=== PATIENT | female | born 1965 | race Caucasian/White ===

== ENCOUNTER 2016-04-01 19:24 | Emergency (ER) | payer OTHER ==
[~2016-04-01] VITALS: Ht 167.6 cm; Wt 90.9 kg
[~2016-04-01 19:24] MED LIST: CELEXA 20MG20 MG/TAB; CELEXA 20MG20 MG/TAB PO; CIPRO 500MG TA500 MG PO; CYANOJECT1000 MCG/M; DILAUDID 2MG TAB2 MG PO; EXCEDRIN TENSIO1 TAB PO; FLAGYL500 MG PO; FLEXERIL 1010 MG/TAB PO; GAS RELIEF 8080 MG PO; HALCION0.25 MG PO; INFED50 MG/ML IJ; LEVAQUIN 750MG750 M1 PO; LORTAB 5/500 501 TAB PO; NEURONTIN300 MG/CAP PO; NORCO 325 MG-51 TAB PO; NORVASC 10MG10 MG PO; NORVASC2.5 MG; PERCOCET 325 MG1 TA2 PO; PREDNISONE10 MG PO; SEPTRA DS 8001 TAB PO; SINGULAIR 110 MG/TAB PO; ULTRAM 50MG TAB50 MG PO; VITAMIN B11000 MCG/M IM; VITAMIN D 50,1.25 MG PO; ZOFRAN ODT4 MG PO
[2016-04-01 19:28] VITALS: BP 146/91; PULSE 71; TEMP 97.3
[2016-04-01] MEDS ORDERED: ULTRAM 50MG TAB50 MG PO (20:21)
== END 2016-04-01 20:59 | disposition home or self-care (01) ==
LOC: COL.ER 19:24
DX: S53.402A Unspecified sprain of left elbow, initial encounter (principal); S46.812A Strain of other muscles, fascia and tendons at shoulder and upper arm level, left arm, initial encounter; X50.0XXA Overexertion from strenuous movement or load, initial encounter; Y93.K9 Activity, other involving animal care; Y92.008 Other place in unspecified non-institutional (private) residence as the place of occurrence of the external cause